=== PATIENT | female | born 1960 | race Caucasian/White ===

== ENCOUNTER 2018-01-17 05:22 | Day surgery (SDC) | payer BC, OTHER ==
[~2018-01-17] VITALS: Ht 162.6 cm; Wt 99.2 kg
[~2018-01-17 05:22] MED LIST: MV-M1TAB25 PO; NAPR220C2 PO
[2018-01-17 06:11] VITALS: BP 139/89
[2018-01-17] MEDS ORDERED: LACTATED RINGERS 1,000 ML IV SCH (06:13)
[2018-01-17] MEDS ORDERED: MIDAZOLAM 1 MG/ML, 2ML ONE (06:16)
[2018-01-17] MEDS ORDERED: FENTANYL PF 250 MCG/5ML ONE (06:16)
[2018-01-17] MEDS ORDERED: PROPOFOL 10 MG/ML, 20ML ONE (06:17)
[2018-01-17] MEDS ORDERED: CEFAZOLIN 1,000 MG ONE ×2 (06:18)
[2018-01-17] MEDS ORDERED: SODIUM CHLORIDE 0.9% PF 10ML ONE (06:18)
[2018-01-17] MEDS ORDERED: DEXAMETHASONE 4 MG/ML, 1ML ONE ×2 (06:19)
[2018-01-17] MEDS ORDERED: ONDANSETRON 2MG/ML, 2ML ONE (06:19)
[2018-01-17] MEDS ORDERED: BUPIVACAINE/PF-EPI 0.5% 1:200K ONE (06:28)
[2018-01-17] MEDS ORDERED: LIDOCAINE 1%-EPI 1:100K, 30ML ONE (06:28)
[2018-01-17] MEDS ORDERED: ONDANSETRON 2MG/ML, 2ML IV PRN (07:00)
[2018-01-17] MEDS ORDERED: PROMETHAZINE 25 MG/ML, 1ML IV PRN (07:00)
[2018-01-17] MEDS ORDERED: PROMETHAZINE 12.5 MG SUPP PR PRN (07:00)
[2018-01-17] MEDS ORDERED: PROMETHAZINE 25 MG/ML, 1ML IM PRN ×2 (07:00)
[2018-01-17] MEDS ORDERED: MORPHINE SULFATE 4 MG/ML, 1ML IVPush PRN (07:00)
[2018-01-17] MEDS ORDERED: ONDANSETRON ODT 8 MG PO PRN (07:00)
[2018-01-17] MEDS ORDERED: HYDROcodone/APAP 7.5-325MG/15ML UDC PO PRN (07:00)
[2018-01-17] MEDS ORDERED: LABETALOL 5MG/ML, 20ML IV PRN (07:00)
[2018-01-17] MEDS ORDERED: NAPROXEN 250 MG TABLET PO PRN (07:00)
[2018-01-17] MEDS ORDERED: hydrALAzine 20 MG/ML, 1ML IV PRN (07:00)
[2018-01-17] MEDS ORDERED: FENTANYL PF 100 MCG/2ML IV PRN (07:00)
[2018-01-17] MEDS ORDERED: PROMETHAZINE 25 MG SUPP PR PRN (07:00)
[2018-01-17] MEDS ORDERED: HYDROmorphone 1 MG/ML, 1ML IV PRN (07:00)
[2018-01-17] MEDS ORDERED: FENTANYL PF 100 MCG/2ML ONE (07:25)
[2018-01-17] MEDS ORDERED: HYDROcodone/APAP 7.5-325MG/15ML UDC ONE (07:26)
== END 2018-01-17 09:10 | disposition home or self-care (01) ==
LOC: OUT 05:22
PROVIDERS: ATTEND Orthopaedic Surgery
DX: S83.282A Other tear of lateral meniscus, current injury, left knee, initial encounter (principal); S83.242A Other tear of medial meniscus, current injury, left knee, initial encounter; M94.262 Chondromalacia, left knee; E66.9 Obesity, unspecified; G47.33 Obstructive sleep apnea (adult) (pediatric); X58.XXXA Exposure to other specified factors, initial encounter; Y93.89 Activity, other specified; Y92.89 Other specified places as the place of occurrence of the external cause; Y99.8 Other external cause status; Z98.890 Other specified postprocedural states; Z79.899 Other long term (current) drug therapy; Z87.39 Personal history of other diseases of the musculoskeletal system and connective tissue; Z87.891 Personal history of nicotine dependence; Z72.89 Other problems related to lifestyle; Z88.1 Allergy status to other antibiotic agents; Z88.8 Allergy status to other drugs, medicaments and biological substances
CPT/HCPCS: 29880; J0690; J1100; J2250; J2405; J2704; J3010; J3490; J7120